=== PATIENT | male | born 1950 | race Caucasian/White ===

== ENCOUNTER 2017-04-13 11:21 | Observation (INO) | payer OTHER ==
[~2017-04-13] VITALS: Ht 175.3 cm; Wt 110.0 kg
[2017-04-13] VITALS (9 sets, daily range): BP systolic 145–192; BP diastolic 68–98; PULSE 73–89; RESP 14–22; TEMP 96.6–98.3; O2SAT 93–95
--- NOTE | 2017-04-13 11:31 | PD ---
Physical Exam Date Seen by Provider: April 13, 2017 Time Seen by Provider: 11:29 Narrative 66 yo male here for evaluation of "same symptoms as when I had a heart attack". Abdominal pain, constipation. Patient lives on a Van. Has no chest pain. But per patient this feels similar to last time. Vomiting. No nausea, no diarrhea. No blood. No SOB. Has been vomiting many times and symptoms are not improving. Vitals sign stable. Patient awaiting bed placement. Data Data Last Documented VS Vital Signs Date Time Temp Pulse Resp B/P Pulse Ox O2 Delivery O2 Flow Rate FiO2 04/13/17 11:25 98.3 89 18 178/86 94 MDM Medical Record Reviewed: Yes Supervised Visit with BERYL: No Avila Corbin April 13, 2017 11:31
--- NOTE | 2017-04-13 11:50 | PD ---
HPI Chief Complaint: GI Complaint Time Seen by Provider: 11:49 Travel History International Travel<30 days: No Contact w/Intl Traveler<30days: No Traveled to known affect area: No History of Present Illness HPI 66-year-old male presents to the emergency Department with nausea and abdominal discomfort. Patient states approximately 8:00 this morning had an episode of what he describes as heartburn nausea. Patient then threw up 1 at that time. Patient then felt improved and had his breakfast, and was driving here from [place] to get a haircut prior to a dental appointment later this afternoon. He states on his way here after breakfast he developed again a feeling of nausea with heartburn and vomited again 2 in the car prior to arriving here in the hospital. Patient states he has similar symptoms to this 3 years ago when he had a heart attack requiring catheterization and 2 stents placed. He states at that time he had no chest pain. At that time he had nausea and heartburn similar to today. He has no recent history of fever chills or other symptoms. Patient continues to be nauseous but denies chest pain at this time. She states she used to take medication for reflux but currently has not been taking it for some months. He has no known drug allergies. PFSH Past Medical History Cardiovascular Problems: Yes (MT) Diabetes: Yes (metformin) Social History Alcohol Use: Yes Tobacco Use: No Substance Use: No Allergies-Medications (Allergen,Severity, Reaction): Coded Allergies: No Known Allergies (Unverified , 04/13/17) Reported Meds & Prescriptions Reported Meds & Active Scripts Active Reported Proventil Hfa 6.7 GM Inh (Albuterol Sulfate) 90 Mcg/Act Aer 2 Puff INH Q6H PRN Symbicort Inh (Budesonide/Formoterol Fumarate) 160-4.5 Mcg/Act Aero 2 Puff INH BID Spiriva Handihaler (Tiotropium Inh) 18 Mcg Cap 18 Mcg INH DAILY 1 capsule = 18 mcg Tramadol-Acetaminophen 37.5-325 mg Tab 2 Tab PO Q4-6H PRN Amoxicillin 500 Mg Tab 500 Mg PO TID Ibuprofen 800 Mg Tab 800 Mg PO TID PRN Metformin (Metformin HCl) 1,000 Mg Tab 1,000 Mg PO BID With meals Pepto-Bismol Liq (Bismuth Subsalicylate) 262 Mg/15 Ml Susp 30 Ml PO Q1/2-1HR PRN Do not exceed 8 doses (240 mL or 16 tbsp) in 24 hours. Allopurinol 300 Mg Tab 300 Mg PO DAILY Atorvastatin (Atorvastatin Calcium) 80 Mg Tab 40 Mg PO HS Alfuzosin HCl ER (Alfuzosin HCl) 10 Mg Tab 10 Mg PO DAILY Ditropan (Oxybutynin Chloride) 5 Mg Tab 5 Mg PO DAILY Multi-Vitamin Daily (Multiple Vitamin) 1 Tab Tab 1 Tab PO DAILY Potassium 99 Mg Tablet 99 Mg PO DAILY Aspirin Adult Low Strength (Aspirin) 81 Mg Tabdr 81 Mg PO DAILY Magnesium Unknown Strength Tab 1 Tab PO DAILY Vitamin D3 (Cholecalciferol) 1,000 Unit Tab 2,500 Units PO DAILY Vitamin C (Ascorbic Acid) 1,000 Mg Tablet.er 1,000 Mg PO DAILY Review of Systems Except as stated in HPI: all other systems reviewed are Neg General / Constitutional: No: Fever Eyes: No: Visual changes HENT: No: Headaches Cardiovascular: No: Chest Pain or Discomfort Respiratory: No: Shortness of Breath Gastrointestinal: Positive: Nausea, Vomiting, Indigestion, Dysphagia, No: Diarrhea, Abdominal Pain Genitourinary: No: Dysuria Musculoskeletal: No: Pain Skin: No Rash Neurologic: No: Weakness Psychiatric: No: Depression Endocrine: No: Polydipsia Hematologic/Lymphatic: No: Easy Bruising Physical Exam Narrative GENERAL: Patient appears somewhat diaphoretic and mildly anxious but no acute distress. SKIN: Warm and mildly diaphoretic. Normal color. Normal turgor. HEAD: Atraumatic. Normocephalic. EYES: Pupils equal and round. No scleral icterus. No injection or drainage. ENT: No nasal bleeding or discharge. Mucous membranes pink and moist. Pharynx is clear. Airway is patent. NECK: Trachea midline. No JVD. Supple and nontender. CARDIOVASCULAR: Regular rate and rhythm. No murmurs gallops or rubs at this time. RESPIRATORY: No accessory muscle use. Clear to auscultation. Breath sounds equal bilaterally. GASTROINTESTINAL: Abdomen soft, non-tender, nondistended. Hepatic and splenic margins not palpable. No CVA tenderness. MUSCULOSKELETAL: Extremities without clubbing, cyanosis, or edema. No obvious deformities. NEUROLOGICAL: Awake and alert. No obvious cranial nerve deficits. Motor grossly within normal limits. Five out of 5 muscle strength in the arms and legs. Normal speech. PSYCHIATRIC: Appropriate mood and affect; insight and judgment normal. Data Data Last Documented VS Vital Signs Date Time Temp Pulse Resp B/P Pulse Ox O2 Delivery O2 Flow Rate FiO2 04/13/17 12:14 73 20 177/80 94 Nasal Cannula 2 149/68 04/13/17 11:25 98.3 Orders Electrocardiogram (04/13/17 11:55) B-Type Natriuretic Peptide (04/13/17 11:55) Ckmb (Isoenzyme) Profile (04/13/17 11:55) Complete Blood Count With Diff (04/13/17 11:55) Comprehensive Metabolic Panel (04/13/17 11:55) Magnesium (Mg) (04/13/17 11:55) Prothrombin Time / Inr (Pt) (04/13/17 11:55) Act Partial Throm Time (Ptt) (04/13/17 11:55) Troponin I (04/13/17 11:55) Lipase (04/13/17 11:55) Chest, Single Ap (04/13/17 11:55) Ecg Monitoring (04/13/17 11:55) Bilateral Bp Monitoring (04/13/17 11:55) Iv Access Insert/Monitor (04/13/17 11:55) Oximetry (04/13/17 11:55) Oxygen Administration (04/13/17 11:55) Aspirin Chew (Aspirin Chew) (04/13/17 12:00) Sodium Chloride 0.9% Flush (Ns Flush) (04/13/17 12:00) Sodium Chlorid 0.9% 500 Ml Inj (Ns 500 M (04/13/17 12:00) Ondansetron Inj (Zofran Inj) (04/13/17 12:00) Pantoprazole Inj (Protonix Inj) (04/13/17 12:00) Al-Mag Hy-Si 40-40-4 Mg/Ml Liq (Mag-Al P (04/13/17 12:00) Lidocaine 2% Viscous (Xylocaine 2% Visco (04/13/17 12:00) CKMB (04/13/17 12:05) CKMB% (04/13/17 12:05) Labs Laboratory Tests Test 04/13/17 12:05 White Blood Count 11.3 TH/MM3 Red Blood Count 4.25 MIL/MM3 Hemoglobin 13.3 GM/DL Hematocrit 40.6 % Mean Corpuscular Volume 95.6 FL Mean Corpuscular Hemoglobin 31.3 PG Mean Corpuscular Hemoglobin 32.7 % Concent Red Cell Distribution Width 13.8 % Platelet Count 156 TH/MM3 Mean Platelet Volume 8.4 FL Neutrophils (%) (Auto) 60.3 % Lymphocytes (%) (Auto) 23.9 % Monocytes (%) (Auto) 11.3 % Eosinophils (%) (Auto) 3.8 % Basophils (%) (Auto) 0.7 % Neutrophils # (Auto) 6.8 TH/MM3 Lymphocytes # (Auto) 2.7 TH/MM3 Monocytes # (Auto) 1.3 TH/MM3 Eosinophils # (Auto) 0.4 TH/MM3 Basophils # (Auto) 0.1 TH/MM3 CBC Comment DIFF FINAL Differential Comment Prothrombin Time 10.0 SEC Prothromb Time International 0.9 RATIO Ratio Activated Partial 26.7 SEC Thromboplast Time Sodium Level 140 MEQ/L Potassium Level 4.1 MEQ/L Chloride Level 103 MEQ/L Carbon Dioxide Level 27.3 MEQ/L Anion Gap 10 MEQ/L Blood Urea Nitrogen 7 MG/DL Creatinine 0.73 MG/DL Estimat Glomerular Filtration 107 ML/MIN Rate Random Glucose 75 MG/DL Calcium Level 9.2 MG/DL Magnesium Level 2.0 MG/DL Total Bilirubin 0.3 MG/DL Aspartate Amino Transf 44 U/L (AST/SGOT) Alanine Aminotransferase 47 U/L (ALT/SGPT) Alkaline Phosphatase 58 U/L Total Creatine Kinase 360 U/L Creatine Kinase MB 7.3 NG/ML Creatine Kinase MB % 2.0 % Troponin I LESS THAN 0.02 NG/ML B-Type Natriuretic Peptide 90 PG/ML Total Protein 6.7 GM/DL Albumin 3.7 GM/DL Lipase 67 U/L [facility] Medical Decision Making Medical Screen Exam Complete: Yes Emergency Medical Condition: Yes Medical Record Reviewed: Yes Differential Diagnosis Nausea and vomiting. Reflux. Cardiac syndrome. MT. Narrative Course Patient is medically stable at time of exam. Labs ordered including CBC, CMP, proBNP, heart attack panel, laceration sites, lipase, and urinalysis. EKG and chest x-ray ordered. IV access is obtained patient is given 500 mL of normal saline bolus. Patient is given 4 mg Zofran IV as well as 40 mg pantoprazole IV. Patient is given 324 mg chewable aspirin as well as GI cocktail by mouth. EKG shows normal sinus rhythm without ST changes. This was reviewed with Dr. Machado. CBC is unremarkable. Coagulation studies are normal. Chemistry shows troponin of less than 0.02. Creatinine kinase is elevated at 360. CK-MB is 7.3, and AST is slightly elevated at 44 otherwise no significant findings. Patient is discussed with Dr. Machado, and she feels admission to the chest pain center is warranted based on the patient's history. Diagnosis Primary Impression: Atypical chest pain Additional Impression: Nausea and vomiting Qualified Code: R11.2 - Non-intractable vomiting with nausea, unspecified vomiting type Admitting Information Admitting Physician Requests: Observation Condition: Stable Jerson Dee April 13, 2017 11:50
[2017-04-13] MEDS ORDERED: PANTOPRAZOLE SODIUM 40 MG VIAL IVP ONE (12:00)
[2017-04-13] MEDS ORDERED: SODIUM CHLORID 0.9% 500 ML INJ 500 ML IV ONE (12:00)
[2017-04-13] MEDS ORDERED: LIDOCAINE VISCOUS 2% SOLN 15 ML UDC PO ONE (12:00)
[2017-04-13] MEDS ORDERED: ASPIRIN 81 MG CHEW TAB PO ONE (12:00)
[2017-04-13] MEDS ORDERED: ALUMINUM/MAGNESIUM/SIMETH 30 ML CUP PO ONE (12:00)
[2017-04-13] MEDS ORDERED: ONDANSETRON HCL 4 MG/2 ML VIAL IVP ONE (12:00)
[2017-04-13] MEDS ORDERED: SODIUM CHLORIDE 0.9% FLUSH 10 ML FLUSH IVF PRN (12:00)
--- NOTE | 2017-04-13 12:36 | RADRPT ---
EXAM DATE/TIME: 04/13/2017 12:06 [facility] COMPARISON: No previous studies available for comparison. INDICATIONS : Chest pain and nausea this morning. MEDICAL HISTORY : Chronic obstructive pulmonary disease. Myocardial infarction. SURGICAL HISTORY : Coronary artery stent. ENCOUNTER: Initial ACUITY: 1 day PAIN SCORE: 4/10 LOCATION: Bilateral chest FINDINGS: The heart size is enlarged. The lungs are clear. No effusion is seen. Vascular calcifications are see n in the aorta and carotid arteries. CONCLUSION: Cardiomegaly. Griffin Escalante MD on April 13, 2017 at 12:35 Board Certified Radiologist. This report was verified electronically.
[2017-04-13 12:51] LABS: AUTOMATED NEUTROPHIL # 6.8 TH/MM3 (1.8-7.7); BASOPHIL # 0.1 TH/MM3 (0-0.2); BASOPHIL % 0.7 % (0.0-2.0); EOSINOPHIL # 0.4 TH/MM3 (0-0.4); EOSINOPHIL % 3.8 % (0.0-4.0); HEMATOCRIT 40.6 % (39.0-51.0); LYMPH % 23.9 % (9.0-44.0); LYMPHOCYTE # 2.7 TH/MM3 (1.0-4.8); MEAN CELL VOLUME 95.6 FL (80.0-100.0); MEAN CORPUSCULAR HEMOGLOBIN 31.3 PG (27.0-34.0); MEAN CORPUSCULAR HGB CONC 32.7 % (32.0-36.0); MONO % 11.3 % (0.0-8.0); NEUT % 60.3 % (16.0-70.0); PLATELET COUNT 156 TH/MM3 (150-450); RED BLOOD COUNT 4.25 MIL/MM3 (4.50-5.90); RED CELL DISTRIBUTION WIDTH 13.8 % (11.6-17.2); WHITE BLOOD COUNT 11.3 TH/MM3 (4.0-11.0)
[2017-04-13] MEDS ORDERED: VITA100018 PO (12:52)
[2017-04-13] MEDS ORDERED: METF1000 PO (12:52)
[2017-04-13] MEDS ORDERED: ALLO300T2 PO (12:52)
[2017-04-13] MEDS ORDERED: ASCO100016 PO (12:52)
[2017-04-13] MEDS ORDERED: SYMB160A INH (12:52)
[2017-04-13] MEDS ORDERED: ALBU6.7H INH (12:52)
[2017-04-13] MEDS ORDERED: IBUP800T23 PO (12:52)
[2017-04-13] MEDS ORDERED: ATOR1TAB18 PO (12:52)
[2017-04-13] MEDS ORDERED: MULT-65 PO (12:52)
[2017-04-13] MEDS ORDERED: OXYB5TAB10 PO (12:52)
[2017-04-13] MEDS ORDERED: TRAM-388 PO (12:52)
[2017-04-13] MEDS ORDERED: AMOX500T PO (12:52)
[2017-04-13] MEDS ORDERED: SPIRCAP INH (12:52)
[2017-04-13] MEDS ORDERED: ALFU10TA3 PO (12:52)
[2017-04-13] MEDS ORDERED: PEPT262S PO (12:52)
[2017-04-13] MEDS ORDERED: ASPI1TAB91 PO (12:52)
[2017-04-13] MEDS ORDERED: POTA99TA4 PO (12:52)
[2017-04-13] MEDS ORDERED: MAGN200T PO (12:52)
[2017-04-13 12:55] LABS: HEMO FLAGS DIFF FINAL
[2017-04-13 13:05] LABS: APTT (PATIENT) 26.7 SEC (24.3-30.1); INTERNATIONAL NORMALIZED RATIO 0.9 RATIO
[2017-04-13 13:28] LABS: ANION GAP 10 MEQ/L (5-15); AST (GOT) 44 U/L (15-37); BICARBONATE 27.3 MEQ/L (21.0-32.0); BLOOD UREA NITROGEN 7 MG/DL (7-18); CHLORIDE 103 MEQ/L (98-107); GLOMERULAR FILTRATION RATE 107 ML/MIN (>89); POTASSIUM 4.1 MEQ/L (3.5-5.1); SODIUM (NA) 140 MEQ/L (136-145)
[2017-04-13 13:33] LABS: ALKALINE PHOSPHATASE 58 U/L (45-117); ALT (GPT) 47 U/L (12-78); CREATINE KINASE 360 U/L (39-308); TOTAL BILIRUBIN ADULT 0.3 MG/DL (0.2-1.0)
[2017-04-13 13:45] LABS: CKMB 7.3 NG/ML (0.5-3.6)
[2017-04-13] MEDS ORDERED: ONDANSETRON HCL 4 MG/2 ML VIAL IV PRN (14:30)
[2017-04-13] MEDS ORDERED: NITROGLYCERIN 0.4 MG SL 25 TABS/BTL SL PRN (14:30)
[2017-04-13] MEDS ORDERED: ACETAMINOPHEN 500 MG CPLT PO PRN (14:30)
--- NOTE | 2017-04-13 14:57 | PD ---
Physical Exam Narrative GENERAL: Well-nourished, well-developed patient. SKIN: Warm and dry. HEAD: Normocephalic and atraumatic. EYES: No injection or drainage. ENT: No nasal drainage noted. NECK: Supple, trachea midline. CARDIOVASCULAR: Regular rate and rhythm RESPIRATORY: Breath sounds equal bilaterally. No accessory muscle use. GASTROINTESTINAL: Abdomen soft, non-tender, nondistended. NEUROLOGICAL: Awake and alert. moves all extremities. Normal speech. Data Data Last Documented VS Vital Signs Date Time Temp Pulse Resp B/P Pulse Ox O2 Delivery O2 Flow Rate FiO2 04/13/17 12:14 73 20 177/80 94 Nasal Cannula 2 149/68 04/13/17 11:25 98.3 Orders Electrocardiogram (04/13/17 11:55) B-Type Natriuretic Peptide (04/13/17 11:55) Ckmb (Isoenzyme) Profile (04/13/17 11:55) Complete Blood Count With Diff (04/13/17 11:55) Comprehensive Metabolic Panel (04/13/17 11:55) Magnesium (Mg) (04/13/17 11:55) Prothrombin Time / Inr (Pt) (04/13/17 11:55) Act Partial Throm Time (Ptt) (04/13/17 11:55) Troponin I (04/13/17 11:55) Lipase (04/13/17 11:55) Chest, Single Ap (04/13/17 11:55) Ecg Monitoring (04/13/17 11:55) Bilateral Bp Monitoring (04/13/17 11:55) Iv Access Insert/Monitor (04/13/17 11:55) Oximetry (04/13/17 11:55) Oxygen Administration (04/13/17 11:55) Aspirin Chew (Aspirin Chew) (04/13/17 12:00) Sodium Chloride 0.9% Flush (Ns Flush) (04/13/17 12:00) Sodium Chlorid 0.9% 500 Ml Inj (Ns 500 M (04/13/17 12:00) Ondansetron Inj (Zofran Inj) (04/13/17 12:00) Pantoprazole Inj (Protonix Inj) (04/13/17 12:00) Al-Mag Hy-Si 40-40-4 Mg/Ml Liq (Mag-Al P (04/13/17 12:00) Lidocaine 2% Viscous (Xylocaine 2% Visco (04/13/17 12:00) CKMB (04/13/17 12:05) CKMB% (04/13/17 12:05) Admit Order (Ed Use Only) (04/13/17 13:51) Labs Laboratory Tests Test 04/13/17 12:05 White Blood Count 11.3 TH/MM3 Red Blood Count 4.25 MIL/MM3 Hemoglobin 13.3 GM/DL Hematocrit 40.6 % Mean Corpuscular Volume 95.6 FL Mean Corpuscular Hemoglobin 31.3 PG Mean Corpuscular Hemoglobin 32.7 % Concent Red Cell Distribution Width 13.8 % Platelet Count 156 TH/MM3 Mean Platelet Volume 8.4 FL Neutrophils (%) (Auto) 60.3 % Lymphocytes (%) (Auto) 23.9 % Monocytes (%) (Auto) 11.3 % Eosinophils (%) (Auto) 3.8 % Basophils (%) (Auto) 0.7 % Neutrophils # (Auto) 6.8 TH/MM3 Lymphocytes # (Auto) 2.7 TH/MM3 Monocytes # (Auto) 1.3 TH/MM3 Eosinophils # (Auto) 0.4 TH/MM3 Basophils # (Auto) 0.1 TH/MM3 CBC Comment DIFF FINAL Differential Comment Prothrombin Time 10.0 SEC Prothromb Time International 0.9 RATIO Ratio Activated Partial 26.7 SEC Thromboplast Time Sodium Level 140 MEQ/L Potassium Level 4.1 MEQ/L Chloride Level 103 MEQ/L Carbon Dioxide Level 27.3 MEQ/L Anion Gap 10 MEQ/L Blood Urea Nitrogen 7 MG/DL Creatinine 0.73 MG/DL Estimat Glomerular Filtration 107 ML/MIN Rate Random Glucose 75 MG/DL Calcium Level 9.2 MG/DL Magnesium Level 2.0 MG/DL Total Bilirubin 0.3 MG/DL Aspartate Amino Transf 44 U/L (AST/SGOT) Alanine Aminotransferase 47 U/L (ALT/SGPT) Alkaline Phosphatase 58 U/L Total Creatine Kinase 360 U/L Creatine Kinase MB 7.3 NG/ML Creatine Kinase MB % 2.0 % Troponin I LESS THAN 0.02 NG/ML B-Type Natriuretic Peptide 90 PG/ML Total Protein 6.7 GM/DL Albumin 3.7 GM/DL Lipase 67 U/L [facility] Supervised Visit with BERYL: Yes Interpretation(s) EKG shows NSR, no ST elevation or depression, and no arrhythmias. No significant T-wave inversions. CBC & BMP Diagram 04/13/17 12:05 Last 24 hours Impressions Chest X-Ray 04/13/17 1155 Signed Impressions: Service Date/Time: Thursday, April 13, 2017 12:06 - CONCLUSION: Cardiomegaly. Griffin Escalante MD Narrative Course I, Dr. crandall, have reviewed the advance practice practitioner's documentation and am in agreement, met with the patient face to face, made the diagnosis, and the medical decision making was done by me. *My assessment and Findings: 66 y/o male presents with chest pain and nausea similar ro prior [place], initial testing no acute. Agrees to chest pain center observation. doesn't follow with a bridge design engineer, no workup in 2 years Diagnosis Primary Impression: Chest pain Qualified Code: R07.9 - Chest pain, unspecified type Additional Impression: Nausea Condition: Stable Giana Crandall MD April 13, 2017 14:57
--- NOTE | 2017-04-13 16:40 | HHI.HP ---
HPI Primary Care Physician [facility] Chief Complaint Nausea History of Present Illness 66-year-old male with past medical history of coronary artery disease and COPD presents to emergency room for further evaluation of nausea and abdominal discomfort. States this morning he developed acid reflux and vomited. At that time he took Pepto-Bismol with some relief. He continued to drive to his dental appointment although started feeling nausea this time with feeling of heartburn. Endorses he vomited a few more times. Patient is concerned as these symptoms were similar to when he had a heart attack 3 years ago. Myocardial infarction occurred while living in [facility]. At that time 2 stents were placed. He continues to have mild nausea although believes it is because he has eaten. He is currently on antibiotics and pain medication for extensive dental work. Review of Systems General: No fatigue,weakness, fever, chills, recent illness although endorses he is currently taking antibiotics prescribed to him by his dentist. He has had altered full teeth pulled and is also taking pain medication. HEENT: No TORRES, no nasal congestion or drainage, no dysphasia CV: No CP, pressure, palpitations, intermittent leg pain, dizziness RESP: No SOB, cough, wheeze or recent URI. Endorses severe COPD stating "my oxygen levels normally 89-92%. States he qualifies for O2 for home. States he is homeless and living out of his van therefore the [place] will not provide him with O2 tanks. GI: Nausea is improving described as "slight nausea." States taking his pain medication and eating most likely will help with his nausea. No bowel changes, diarrhea, pain, distention. EXT: No lower leg edema, no paraesthesias MS: No discomfort or change in ROM NEURO: No change in memory, dizziness, difficulty with balance, LOC, motor/ sensory deficits PSYCH: No anxiety, depression SKIN: No rashes, no concerning lesions Past Family Social History Allergies: Coded Allergies: No Known Allergies (Unverified , 04/13/17) Past Medical History Coronary artery disease including 2 cardiac stents, COPD, gout Reported Medications Active Reported Proventil Hfa 6.7 GM Inh (Albuterol Sulfate) 90 Mcg/Act Aer 2 Puff INH Q6H PRN Symbicort Inh (Budesonide/Formoterol Fumarate) 160-4.5 Mcg/Act Aero 2 Puff INH BID Spiriva Handihaler (Tiotropium Inh) 18 Mcg Cap 18 Mcg INH DAILY 1 capsule = 18 mcg Tramadol-Acetaminophen 37.5-325 mg Tab 2 Tab PO Q4-6H PRN Amoxicillin 500 Mg Tab 500 Mg PO TID Ibuprofen 800 Mg Tab 800 Mg PO TID PRN Metformin (Metformin HCl) 1,000 Mg Tab 1,000 Mg PO BID With meals Pepto-Bismol Liq (Bismuth Subsalicylate) 262 Mg/15 Ml Susp 30 Ml PO Q1/2-1HR PRN Do not exceed 8 doses (240 mL or 16 tbsp) in 24 hours. Allopurinol 300 Mg Tab 300 Mg PO DAILY Atorvastatin (Atorvastatin Calcium) 80 Mg Tab 40 Mg PO HS Alfuzosin HCl ER (Alfuzosin HCl) 10 Mg Tab 10 Mg PO DAILY Ditropan (Oxybutynin Chloride) 5 Mg Tab 5 Mg PO DAILY Multi-Vitamin Daily (Multiple Vitamin) 1 Tab Tab 1 Tab PO DAILY Potassium 99 Mg Tablet 99 Mg PO DAILY Aspirin Adult Low Strength (Aspirin) 81 Mg Tabdr 81 Mg PO DAILY Magnesium Unknown Strength Tab 1 Tab PO DAILY Vitamin D3 (Cholecalciferol) 1,000 Unit Tab 2,500 Units PO DAILY Vitamin C (Ascorbic Acid) 1,000 Mg Tablet.er 1,000 Mg PO DAILY Active Ordered Medications Current Medications Medications (Trade) Dose Ordered Sig/Dottie Route Start Time Stop Time Status Last Admin (NS Flush) 2 ml UNSCH PRN IVF 04/13/17 12:00 (NS Flush) 2 ml BID IV FLUSH 04/13/17 21:00 (Tylenol) 500 mg Q4H PRN PO 04/13/17 14:30 (Zofran Inj) 4 mg Q6H PRN IV 04/13/17 14:30 (Nitrostat Sl) 0.4 mg Q5M PRN SL 04/13/17 14:30 (Aspirin) 325 mg DAILY PO 04/14/17 09:00 Social History No known diabetes or hypertension. Endorses hyperlipidemia. Currently is homeless living out of his van. [facility] Past cardiac testing 2013 while living in [facility] he experienced a myocardial infarction. States cardiac catheterization was completed had 2 cardiac stents placed. 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 Physical Exam Vital Signs Vital Signs Date Time Temp Pulse Resp B/P Pulse Ox O2 Delivery O2 Flow Rate FiO2 04/13/17 16:27 98.2 78 14 192/98 94 04/13/17 15:30 73 22 152/86 94 Nasal Cannula 2 04/13/17 14:58 95 Nasal Cannula 2.00 04/13/17 12:14 73 20 177/80 94 Nasal Cannula 2 149/68 04/13/17 12:01 20 04/13/17 12:00 20 93 Nasal Cannula 2 04/13/17 12:00 3 Nasal Cannula 2 04/13/17 11:25 98.3 89 18 178/86 94 Physical Exam GENERAL: Alert WN, WD, NAD, male HEAD: NC, AT ENT: Mucous membranes pink and moist, dental plate in place NECK: Supple, no masses, trachea midline CV: RRR, without murmur, rub, gallop, no JVD, S1-S2 no S3-S4. RESP: Diminished lung sounds throughout with prolonged expiratory phase. no crackles, wheeze, rhonchi, symmetrical chest rise, mildly labored conversation although able to speak in full sentences ABD: Soft, NT, ND, no masses, positive bowel tones, obese, round EXT: Pulses +24, no dependent edema MS: Normal tone 4 extremities, nontender, no obvious deformities, full range of motion NEURO: CN II through CN XII grossly intact, motor strength 5/5, gait WNL PSYCH: A+O 3, pleasant affect, appropriate speech, appropriate mood and affect , insight and judgment SKIN: Normal turgor, normal texture Laboratory Laboratory Tests Test 04/13/17 12:05 White Blood Count 11.3 Red Blood Count 4.25 Hemoglobin 13.3 Hematocrit 40.6 Mean Corpuscular Volume 95.6 Mean Corpuscular Hemoglobin 31.3 Mean Corpuscular Hemoglobin 32.7 Concent Red Cell Distribution Width 13.8 Platelet Count 156 Mean Platelet Volume 8.4 Neutrophils (%) (Auto) 60.3 Lymphocytes (%) (Auto) 23.9 Monocytes (%) (Auto) 11.3 Eosinophils (%) (Auto) 3.8 Basophils (%) (Auto) 0.7 Neutrophils # (Auto) 6.8 Lymphocytes # (Auto) 2.7 Monocytes # (Auto) 1.3 Eosinophils # (Auto) 0.4 Basophils # (Auto) 0.1 CBC Comment DIFF FINAL Differential Comment Prothrombin Time 10.0 Prothromb Time International 0.9 Ratio Activated Partial 26.7 Thromboplast Time Sodium Level 140 Potassium Level 4.1 Chloride Level 103 Carbon Dioxide Level 27.3 Anion Gap 10 Blood Urea Nitrogen 7 Creatinine 0.73 Estimat Glomerular Filtration 107 Rate Random Glucose 75 Calcium Level 9.2 Magnesium Level 2.0 Total Bilirubin 0.3 Aspartate Amino Transf 44 (AST/SGOT) Alanine Aminotransferase 47 (ALT/SGPT) Alkaline Phosphatase 58 Total Creatine Kinase 360 Creatine Kinase MB 7.3 Creatine Kinase MB % 2.0 Troponin I LESS THAN 0.02 B-Type Natriuretic Peptide 90 Total Protein 6.7 Albumin 3.7 Lipase 67 Result Diagram: 04/13/17 1205 04/13/17 1205 Imaging Last Impressions Chest X-Ray 04/13/17 1155 Signed Impressions: Service Date/Time: Thursday, April 13, 2017 12:06 - CONCLUSION: Cardiomegaly. Griffin Escalante MD Course EKG First EKG showed normal sinus rhythm, no ST or T-segment changes Assessment and Plan Assessment and Plan Chest painseen and evaluated by Dr. Ebony Serna. Admitted to chest pain center. Will rule out with 3 sets of EKGs and cardiac enzymes. If ruled out will complete chemical stress test in a.m. COPDcontinue Symbicort and albuterol when necessary History of coronary artery diseasecontinue aspirin and atorvastatin, discussed in length importance of keeping follow-up appointments with cardiology Diabetes- hold metformin, SSI coverage NauseaZofran when necessary, continue to monitor Ligia Segura April 13, 2017 16:40
[2017-04-13] MEDS ORDERED: amLODIPine BESYLATE 5 MG TAB PO ONE (16:45)
[2017-04-13 16:46] LABS: CREATINE KINASE 283 U/L (39-308)
[2017-04-13 16:58] LABS: CKMB 6.5 NG/ML (0.5-3.6)
[2017-04-13] MEDS ORDERED: RESP: ALBUTEROL 2.5 MG/3 ML NEB (PRN) NEB (17:00)
[2017-04-13] MEDS ORDERED: GLUCAGON 1 MG/ML VIAL OTHER PRN (17:15)
[2017-04-13] MEDS ORDERED: DEXTROSE 50% IN WATER 50 ML VIAL(D50) IV PRN (17:15)
[2017-04-13] MEDS: AMOXICILLIN (TRIHYDRATE) 500 MG CAP PO SCH (19:01)
[2017-04-13 19:02] LABS: CREATINE KINASE 307 U/L (39-308)
[2017-04-13] MEDS ORDERED: ATORVASTATIN 40 MG TAB PO SCH (21:00)
[2017-04-13] MEDS: SODIUM CHLORIDE 0.9% FLUSH 10 ML FLUSH IV FLUSH SCH (21:00)
[2017-04-13] MEDS: INSULIN ASPART SUPPLEMENTAL SCALE SQ SCH (21:00)
[2017-04-13] MEDS: BUDESONIDE-FORMOTEROL 160/4.5 MCG INHALER INH SCH (21:00)
[2017-04-13] MEDS ORDERED: traMADol/ACETAMINOPHEN 37.5/325 1 TAB PO PRN (23:30)
[2017-04-14] VITALS (7 sets, daily range): BP systolic 115–149; BP diastolic 64–72; PULSE 81–90; RESP 18–20; TEMP 94.6–98.9; O2SAT 86–97
[2017-04-14] MEDS: INSULIN ASPART SUPPLEMENTAL SCALE SQ SCH ×2 (05:48→11:57)
[2017-04-14] MEDS: BUDESONIDE-FORMOTEROL 160/4.5 MCG INHALER INH SCH (08:15)
[2017-04-14] MEDS: AMOXICILLIN (TRIHYDRATE) 500 MG CAP PO SCH ×2 (08:16→12:05)
[2017-04-14] MEDS: SODIUM CHLORIDE 0.9% FLUSH 10 ML FLUSH IV FLUSH SCH (08:16)
[2017-04-14] MEDS ORDERED: OXYBUTYNIN CHLORIDE 5 MG TAB PO SCH (09:00)
[2017-04-14] MEDS ORDERED: ASPIRIN 325 MG TAB PO SCH (09:00)
[2017-04-14] MEDS ORDERED: ALLOPURINOL 300 MG TAB PO SCH (09:00)
[2017-04-14] MEDS ORDERED: ALFUZOSIN HCL 10 MG PO SCH (09:00)
[2017-04-14] MEDS ORDERED: NON-FORMULARY DRUG (Multiple Vitamin (Multi-Vitamin Daily) 1 TAB) PO SCH (09:00)
[2017-04-14] MEDS ORDERED: TIOTROPIUM BROMIDE 18 MCG INH INH SCH (09:00)
[2017-04-14] MEDS ORDERED: TAMSULOSIN HCL 0.4 MG CAP PO SCH (09:00)
[2017-04-14] MEDS ORDERED: MULTIVITAMIN TAB PO SCH (09:00)
[2017-04-14] MEDS ORDERED: REGADENOSON INJ 0.4 MG/5 ML SYR ONE (10:13)
--- NOTE | 2017-04-14 12:03 | RADRPT ---
EXAM DATE/TIME: 04/14/2017 09:23 [facility] COMPARISON: No previous studies available for comparison. INDICATIONS : Nausea and vomiting with abdominal pain. Angina. DOSE: 35.0 mCi Tc99m Myoview at stress. 11.0 mCi Tc99m Myoview at rest. 0.4 mg Lexiscan STRESS SYMPTOMS: Chest pain and dyspnea. EJECTION FRACTION: > 70% MEDICAL HISTORY : Chronic obstructive pulmonary disease. Diabetes mellitus type 2. Myocardial infarction. SURGICAL HISTORY : CABG Coronary artery stent. ENCOUNTER: Initial ACUITY: 1 day PAIN SCALE: 6/10 LOCATION: Abdominal pain. TECHNIQUE: The patient underwent pharmacologic stress with infusion of prescribed dose. Continuous ECG tracing was monitored during stress. Gated SPECT imaging was performed after stress and conventional SPECT i maging was performed at rest. The examination was performed on a SPECT/CT scanner, both attenuation and non-corrected datasets were reviewed. FINDINGS: DISTRIBUTION: The maximum perfused segment at stress is in the anterior lateral wall. PERFUSION STUDY: The pattern of perfusion at stress is within normal limits. GATED STUDY: There is intact wall motion and thickening without hypokinetic or dyskinetic segments. CONCLUSION: Negative for stress-induced ischemia. RISK CATEGORY: Low (<1% Annual Mortality Rate) Jhonny Medeiros MD FACR on April 14, 2017 at 12:01 Board Certified Radiologist. This report was verified electronically.
--- NOTE | 2017-04-14 12:53 | HHI.DCPOC ---
Discharge Care Plan Diagnosis: (1) Chest pain (2) CAD (coronary artery disease) (3) H/O heart artery stent (4) Hypertension (5) Hyperlipidemia (6) DM (diabetes mellitus) (7) COPD (chronic obstructive pulmonary disease) Goals to Promote Your Health DISCUSS THE NEED TO TAKE LISINOPRIL TO PROTECT YOUR KIDNEYS WITH YOUR HISTORY OF DIABETES. * To prevent worsening of your condition and complications * To maintain your health at the optimal level Directions to Meet Your Goals Take your medications as prescribed Follow your dietary instruction Follow activity as directed Keep your appointments as scheduled Take your immunizations and boosters as scheduled If your symptoms worsen call your PCP, if no PCP go to Urgent Care Center or Emergency Room Smoking is Dangerous to Your Health. Avoid second hand smoke Call the 24-hour hour crisis hotline for domestic abuse at [facility] [place] April 14, 2017 12:53
--- NOTE | 2017-04-14 13:47 | EKG ---
Date Performed: 04/14/2017 Time Performed: 01:51:25 PTAGE: 66 years EKG: Sinus rhythm NORMAL ECG PREVIOUS TRACING : 04/13/2017 16.04 Since previous tracing, no significant change noted DOCTOR: Guevara Parra Interpretating Date/Time 04/14/2017 13:46:46
--- NOTE | 2017-04-14 13:50 | EKG ---
Date Performed: 04/13/2017 Time Performed: 16:04:15 PTAGE: 66 years EKG: Sinus rhythm WITH SINUS ARRHYTHMIA NORMAL ECG PREVIOUS TRACING : 04/13/2017 12.17 Since previous tracing, no significant change noted DOCTOR: Guevara Parra Interpretating Date/Time 04/14/2017 13:49:05
--- NOTE | 2017-04-14 13:52 | TR ---
Date Performed: 04/14/2017 Time Performed: 10:22:07 DOCTOR: Guevara Parra DRUG LIST: CLINICAL HISTORY: REASON FOR TEST: REASON FOR ENDING: OBSERVATION: CONCLUSION: Lexiscan stress test was performed under standard four minute protocol. Radionuclid e was injected one minute prior to ending the test. No electrocardiographic abormalities were present to suggest ischemia. Nuclear imaging and interpretation are pending. COMMENTS:
--- NOTE | 2017-04-14 13:52 | EKG ---
Date Performed: 04/13/2017 Time Performed: 12:17:00 PTAGE: 66 years EKG: Sinus rhythm NORMAL ECG NO PREVIOUS TRACING DOCTOR: Guevara Parra Interpretating Date/Time 04/14/2017 13:51:08
== END 2017-04-14 13:45 | disposition home or self-care (01) ==
LOC: NEPC 11:21 → NEDA 13:53 → NEPFCDU 16:26
PROVIDERS: ADMIT Internal Medicine Interventional Cardiology; ATTEND Internal Medicine Interventional Cardiology
DX: R07.89 Other chest pain (principal); R11.0 Nausea; E11.9 Type 2 diabetes mellitus without complications; E78.5 Hyperlipidemia, unspecified; I25.10 Atherosclerotic heart disease of native coronary artery without angina pectoris; Z95.5 Presence of coronary angioplasty implant and graft; J44.9 Chronic obstructive pulmonary disease, unspecified; I25.2 Old myocardial infarction; K21.9 Gastro-esophageal reflux disease without esophagitis; M10.9 Gout, unspecified; Z95.1 Presence of aortocoronary bypass graft; Z59.0 Homelessness; Z79.84 Long term (current) use of oral hypoglycemic drugs; Z79.82 Long term (current) use of aspirin
CPT/HCPCS: 71010; 78452; 80053; 82550; 82552; 82948; 83690; 83735; 83880; 84484; 85025; 85610; 85730; 93005; 93017; 96374; 96375; 99285; A9502; C9113; G0378; J2405; J2785; J7040

== ENCOUNTER 2017-10-14 16:25 | Emergency (ER) | payer OTHER ==
[~2017-10-14] VITALS: Ht 175.3 cm; Wt 110.0 kg
[~2017-10-14 16:25] MED LIST: ALBU6.7H INH; ALFU10TA3 PO; ALLO300T2 PO; AMOX500T PO; ASCO100029 PO; ASPI81TA16 PO; ATOR80TA45 PO; IBUP1TAB7 PO; MAGN200T PO; METF1000 PO; MULT-65 PO; OXYB5TAB8 PO; PEPT262S PO; POTA99TA4 PO; SPIRCAP INH; SYMB160A INH; TRAM-388 PO; VITA100018 PO
[2017-10-14 16:28] VITALS: BP 139/56; PULSE 101; RESP 18; TEMP 99.4; O2SAT 95
[2017-10-14] MEDS ORDERED: SODIUM CHLORIDE 0.9% FLUSH 10 ML FLUSH IVF PRN (16:45)
[2017-10-14 16:49] VITALS: BP 121/64; PULSE 98; RESP 20; O2SAT 94
--- NOTE | 2017-10-14 16:53 | PD ---
HPI Chief Complaint: Cardiac Complaint Time Seen by Provider: 16:40 Travel History International Travel<30 days: No Contact w/Intl Traveler<30days: No Traveled to known affect area: No History of Present Illness HPI 66-year-old male with history of coronary artery disease, COPD, hyperlipidemia, presents for evaluation of dyspnea. For the past 3 weeks he has had progressively worsening dyspnea with exertion. He also endorses a cough with clear sputum production. He was seen at the [place] and referred here for further evaluation. He has been using his prescribed COPD medications with minimal relief. He denies chest pain, fevers or chills, lower extremity edema, recent travel, recent surgery. No history of CHF. No other complaints at this time. PFSH Past Medical History Asthma: No Blood Disorders: No Heart Rhythm Problems: No Cancer: No Cardiovascular Problems: Yes High Cholesterol: No Chemotherapy: No Chest Pain: Yes Congestive Heart Failure: No COPD: Yes Diabetes: Yes Patient Takes Glucophage: Yes Diminished Hearing: No Endocrine: Yes Gastrointestinal Disorders: Yes Genitourinary: Yes (NOCTURIA, ENLARGED PROSTATE.) Musculoskeletal: Yes (muscle cramps) Neurologic: No Psychiatric: No Reproductive: No Respiratory: Yes Radiation Therapy: No Sleep Apnea: Yes Thyroid Disease: No Tetanus Vaccination: < 5 Years Past Surgical History Coronary Artery Bypass Graft: Yes (stent x 2) Other Surgery: Yes (bilateral eye surgery, teeth removal , cardiac cath w/ 2 stents) Social History Alcohol Use: Yes Tobacco Use: No Substance Use: No Allergies-Medications (Allergen,Severity, Reaction): Coded Allergies: No Known Allergies (Unverified Adverse Reaction, Unknown, 10/14/17) Reported Meds & Prescriptions Reported Meds & Active Scripts Active Azithromycin 250 Mg Tab 250 Mg PO DIRECTED Take 2 tabs (500 mg) on day 1 then 1 tab daily x 4 days. Prednisone 20 Mg Tab 20 Mg PO BID 5 Days Reported Proventil Hfa 6.7 GM Inh (Albuterol Sulfate) 90 Mcg/Act Aer 2 Puff INH Q6H PRN Symbicort Inh (Budesonide/Formoterol Fumarate) 160-4.5 Mcg/Act Aero 2 Puff INH BID Spiriva Handihaler (Tiotropium Inh) 18 Mcg Cap 18 Mcg INH DAILY 1 capsule = 18 mcg Tramadol-Acetaminophen 37.5-325 mg Tab 2 Tab PO Q4-6H PRN Ibuprofen 800 Mg Tab 800 Mg PO TID PRN Metformin (Metformin HCl) 1,000 Mg Tab 1,000 Mg PO BID With meals Pepto-Bismol Liq (Bismuth Subsalicylate) 262 Mg/15 Ml Susp 30 Ml PO Q1/2-1HR PRN Do not exceed 8 doses (240 mL or 16 tbsp) in 24 hours. Allopurinol 300 Mg Tab 300 Mg PO DAILY Atorvastatin (Atorvastatin Calcium) 80 Mg Tab 40 Mg PO HS Alfuzosin HCl ER (Alfuzosin HCl) 10 Mg Tab 10 Mg PO DAILY Ditropan (Oxybutynin Chloride) 5 Mg Tab 5 Mg PO DAILY Multi-Vitamin Daily (Multiple Vitamin) 1 Tab Tab 1 Tab PO DAILY Potassium 99 Mg Tablet 99 Mg PO DAILY Aspirin Adult Low Strength (Aspirin) 81 Mg Tabdr 81 Mg PO DAILY Magnesium Unknown Strength Tab 1 Tab PO DAILY Vitamin D3 (Cholecalciferol) 1,000 Unit Tab 2,500 Units PO DAILY Vitamin C (Ascorbic Acid) 1,000 Mg Tablet.er 1,000 Mg PO DAILY Review of Systems Except as stated in HPI: all other systems reviewed are Neg Physical Exam Narrative GENERAL: Well-nourished male in no acute distress SKIN: Warm and dry. HEAD: Atraumatic. Normocephalic. EYES: Pupils equal and round. No scleral icterus. No injection or drainage. ENT: No nasal bleeding or discharge. Mucous membranes pink and moist. NECK: Trachea midline. No JVD. CARDIOVASCULAR: Regular rate and rhythm. No murmur appreciated. RESPIRATORY: No accessory muscle use. No crackles, wheezing, rhonchi GASTROINTESTINAL: Abdomen soft, non-tender, nondistended. Hepatic and splenic margins not palpable. MUSCULOSKELETAL: No obvious deformities. No clubbing. No cyanosis. No edema. NEUROLOGICAL: Awake and alert. No obvious cranial nerve deficits. Motor grossly within normal limits. Normal speech. PSYCHIATRIC: Appropriate mood and affect; insight and judgment normal. Data Data Last Documented VS Vital Signs Date Time Temp Pulse Resp B/P (MAP) Pulse Ox O2 Delivery O2 Flow Rate FiO2 10/14/17 19:20 92 17 93 Room Air 10/14/17 19:19 123/66 (85) 10/14/17 16:28 99.4 Orders Orders Complete Blood Count With Diff (10/14/17 16:45) Comprehensive Metabolic Panel (10/14/17 16:45) B-Type Natriuretic Peptide (10/14/17 16:45) Act Partial Throm Time (Ptt) (10/14/17 16:45) Prothrombin Time / Inr (Pt) (10/14/17 16:45) Magnesium (Mg) (10/14/17 16:45) Ckmb (Isoenzyme) Profile (10/14/17 16:45) Troponin I (10/14/17 16:45) Iv Access Insert/Monitor (10/14/17 16:45) Electrocardiogram (10/14/17 16:45) Ecg Monitoring (10/14/17 16:45) Oximetry (10/14/17 16:45) Oxygen Administration (10/14/17 16:45) Chest, Single Ap (10/14/17 16:45) Sodium Chloride 0.9% Flush (Ns Flush) (10/14/17 16:45) Albuterol-Ipratropium Neb (Duoneb Neb) (10/14/17 17:00) CKMB (10/14/17 16:50) CKMB% (10/14/17 16:50) Ct Pulmonary Angiogram (10/14/17 18:59) Iohexol 350 Inj (Omnipaque 350 Inj) (10/14/17 19:51) Methylprednisolone So Succ Inj (Solumedr (10/14/17 21:30) Ed Discharge Order (10/14/17 21:22) Labs Laboratory Tests Test 10/14/17 16:50 White Blood Count 11.2 TH/MM3 Red Blood Count 4.14 MIL/MM3 Hemoglobin 13.7 GM/DL Hematocrit 40.4 % Mean Corpuscular Volume 97.5 FL Mean Corpuscular Hemoglobin 33.1 PG Mean Corpuscular Hemoglobin Concent 33.9 % Red Cell Distribution Width 14.3 % Platelet Count 155 TH/MM3 Mean Platelet Volume 9.2 FL Neutrophils (%) (Auto) 55.6 % Lymphocytes (%) (Auto) 28.0 % Monocytes (%) (Auto) 11.5 % Eosinophils (%) (Auto) 4.0 % Basophils (%) (Auto) 0.9 % Neutrophils # (Auto) 6.2 TH/MM3 Lymphocytes # (Auto) 3.1 TH/MM3 Monocytes # (Auto) 1.3 TH/MM3 Eosinophils # (Auto) 0.5 TH/MM3 Basophils # (Auto) 0.1 TH/MM3 CBC Comment DIFF FINAL Differential Comment Prothrombin Time 10.4 SEC Prothromb Time International Ratio 1.0 RATIO Activated Partial Thromboplast Time 25.0 SEC Blood Urea Nitrogen 17 MG/DL Creatinine 1.01 MG/DL Random Glucose 114 MG/DL Total Protein 6.9 GM/DL Albumin 4.1 GM/DL Calcium Level 9.2 MG/DL Magnesium Level 1.8 MG/DL Alkaline Phosphatase 57 U/L Aspartate Amino Transf (AST/SGOT) 77 U/L Alanine Aminotransferase (ALT/SGPT) 77 U/L Total Bilirubin 0.5 MG/DL Sodium Level 137 MEQ/L Potassium Level 4.3 MEQ/L Chloride Level 103 MEQ/L Carbon Dioxide Level 25.6 MEQ/L Anion Gap 8 MEQ/L Estimat Glomerular Filtration Rate 73 ML/MIN Total Creatine Kinase 506 U/L Creatine Kinase MB 8.4 NG/ML Creatine Kinase MB % 1.7 % Troponin I LESS THAN 0.02 NG/ML B-Type Natriuretic Peptide 3 PG/ML MDM Medical Decision Making Medical Screen Exam Complete: Yes Emergency Medical Condition: Yes Medical Record Reviewed: Yes Differential Diagnosis New onset CHF, COPD exacerbation, pneumonia, pulmonary embolism, coronary artery disease, pneumothorax, pleural effusion, hemothorax, pericardial effusion Narrative Course The patient will be placed on ECG monitoring pulse oximetry. A 12-lead EKG will be obtained. Plan is for lab work, chest x-ray. Trial of DuoNeb therapy will be initiated. The patient's lab work is been reviewed and found to be reassuring. His CT pulmonary angiogram is negative. He feels improved after the administration of DuoNeb and suspicion is that the patient has a COPD exacerbation. He has been ambulatory during his ED stay with no hypoxic events. He will be discharged with a short course of prednisone and azithromycin. Diagnosis Primary Impression: COPD exacerbation Additional Instructions: Medication as prescribed. Follow up close with primary care physician and return for any acutely worsening symptoms. Med/Other Pt SpecificInfo: Prescription(s) given Scripts Azithromycin (Azithromycin) 250 Mg Tab 250 MG PO DIRECTED for Infection, #6 TAB 0 Refills Take 2 tabs (500 mg) on day 1 then 1 tab daily x 4 days. Prov: Celestine Rock MD 10/14/17 Prednisone (Prednisone) 20 Mg Tab 20 MG PO BID for 5 Days, #10 TAB 0 Refills Prov: Celestine Rock MD 10/14/17 Disposition: 01 DISCHARGE HOME Condition: Stable Ochoa Moore Oct 14, 2017 16:53
[2017-10-14] MEDS ORDERED: RESP: ALBUTEROL 2.5 MG/IPRATROPIUM 0.5 MG NEB (SCH) INH ONE (17:00)
--- NOTE | 2017-10-14 17:11 | RADRPT ---
EXAM DATE/TIME: 10/14/2017 17:04 [facility] COMPARISON: CHEST SINGLE AP, April 13, 2017, 12:06. INDICATIONS : Short of breath MEDICAL HISTORY : Chronic obstructive pulmonary disease. SURGICAL HISTORY : Coronary artery stent ENCOUNTER: Initial ACUITY: 1 day PAIN SCORE: 0/10 LOCATION: chest FINDINGS: 2 AP portable erect chest was obtained and demonstrate hyperinflation of both lungs with an apparent pericardiac fat-pad on the right which is unchanged. There are no new infiltrates or effusions. The h eart size is at the upper limits of normal with no perihilar edema. Atherosclerotic calcifications ar e present in the aorta. The bony thorax remains intact. CONCLUSION: Stable appearance with no acute cardiopulmonary disease. Gorge Wolf MD on October 14, 2017 at 17:08 Board Certified Radiologist. This report was verified electronically.
[2017-10-14 17:56] LABS: AUTOMATED NEUTROPHIL # 6.2 TH/MM3 (1.8-7.7); BASOPHIL # 0.1 TH/MM3 (0-0.2); BASOPHIL % 0.9 % (0.0-2.0); EOSINOPHIL # 0.5 TH/MM3 (0-0.4); HEMATOCRIT 40.4 % (39.0-51.0); HEMO FLAGS DIFF FINAL; LYMPHOCYTE # 3.1 TH/MM3 (1.0-4.8); MEAN CELL VOLUME 97.5 FL (80.0-100.0); MEAN CORPUSCULAR HEMOGLOBIN 33.1 PG (27.0-34.0); MEAN CORPUSCULAR HGB CONC 33.9 % (32.0-36.0); MONO % 11.5 % (0.0-8.0); NEUT % 55.6 % (16.0-70.0); PLATELET COUNT 155 TH/MM3 (150-450); RED BLOOD COUNT 4.14 MIL/MM3 (4.50-5.90); RED CELL DISTRIBUTION WIDTH 14.3 % (11.6-17.2); WHITE BLOOD COUNT 11.2 TH/MM3 (4.0-11.0)
[2017-10-14 18:09] LABS: PROTHROMBIN TIME - PATIENT 10.4 SEC (9.8-11.6)
[2017-10-14 18:15] LABS: ANION GAP 8 MEQ/L (5-15); AST (GOT) 77 U/L (15-37); BICARBONATE 25.6 MEQ/L (21.0-32.0); BLOOD UREA NITROGEN 17 MG/DL (7-18); CHLORIDE 103 MEQ/L (98-107); GLOMERULAR FILTRATION RATE 73 ML/MIN (>89); MAGNESIUM 1.8 MG/DL (1.5-2.5); POTASSIUM 4.3 MEQ/L (3.5-5.1); SODIUM (NA) 137 MEQ/L (136-145)
[2017-10-14 18:20] LABS: ALKALINE PHOSPHATASE 57 U/L (45-117); ALT (GPT) 77 U/L (12-78); CREATINE KINASE 506 U/L (39-308); TOTAL BILIRUBIN ADULT 0.5 MG/DL (0.2-1.0)
[2017-10-14 18:32] LABS: CKMB 8.4 NG/ML (0.5-3.6)
[2017-10-14 19:19] VITALS: BP 123/66; PULSE 92; RESP 17; O2SAT 91
[2017-10-14] MEDS ORDERED: IOHEXOL 350 MG/ML 10 ML VIAL (for RAD DIAG) IVCONTRAST ONE (19:51)
--- NOTE | 2017-10-14 21:21 | RADRPT ---
EXAM DATE/TIME: 10/14/2017 19:37 [facility] COMPARISON: No previous studies available for comparison. INDICATIONS : Short of breath. Congestion. IV CONTRAST: 75 cc Omnipaque 350 (iohexol) IV RADIATION DOSE: 17.81 CTDIvol (mGy) MEDICAL HISTORY : Cardiovascular disease. Chronic obstructive pulmonary disease. Congestive heart failure.Diabetes. SURGICAL HISTORY : None. ENCOUNTER: Initial ACUITY: 1 day PAIN SCALE: 0/10 LOCATION: chest TECHNIQUE: Volumetric scanning of the chest was performed using a pulmonary embolism protocol MIP images were re constructed. Using automated exposure control and adjustment of the mA and/or kV according to patien t size, radiation dose was kept as low as reasonably achievable to obtain optimal diagnostic quality images. DICOM format image data is available electronically for review and comparison. Follow-up recommendations for detected pulmonary nodules are based at a minimum on nodule size and pa tient risk factors according to Fleischner Society Guidelines. FINDINGS: PULMONARY ARTERIES: No filling defects are seen in the pulmonary arteries through the segmental level. LUNGS: There is scattered emphysematous change seen in the upper lungs. PLEURAE: There is no pleural thickening or pleural effusion. MEDIASTINUM: There is good visualization of the great vessels of the middle mediastinum. No evidence of mediastin al or hilar adenopathy/mass. Coronary artery calcifications are present. MUSCULOSKELETAL: Within normal limits for patient age. MISCELLANEOUS: The visualized upper abdominal organs demonstrate no acute abnormality. CONCLUSION: 1. No pulmonary embolus. 2. Emphysematous change. Griffin Escalante MD on October 14, 2017 at 21:17 Board Certified Radiologist. This report was verified electronically.
[2017-10-14] MEDS ORDERED: AZIT250T3 PO (21:24)
[2017-10-14] MEDS ORDERED: PRED20 PO (21:24)
[2017-10-14] MEDS ORDERED: methylPREDNISolone SOD SUCC 125 MG/2 ML VIAL IV PUSH ONE (21:30)
--- NOTE | 2017-10-14 21:32 | PD ---
Physical Exam Date Seen by Provider: Oct 14, 2017 Time Seen by Provider: 19:50 Narrative Sent from [place] for SOB to R/O CHF we reviewed his myocardial profusion scan > 70 % EF and CXR read as no congestion sat on RA 95 % ready for discharge Data Data Last Documented VS Vital Signs Date Time Temp Pulse Resp B/P (MAP) Pulse Ox O2 Delivery O2 Flow Rate FiO2 10/14/17 19:20 92 17 93 Room Air 10/14/17 19:19 123/66 (85) 10/14/17 16:28 99.4 Orders Orders Complete Blood Count With Diff (10/14/17 16:45) Comprehensive Metabolic Panel (10/14/17 16:45) B-Type Natriuretic Peptide (10/14/17 16:45) Act Partial Throm Time (Ptt) (10/14/17 16:45) Prothrombin Time / Inr (Pt) (10/14/17 16:45) Magnesium (Mg) (10/14/17 16:45) Ckmb (Isoenzyme) Profile (10/14/17 16:45) Troponin I (10/14/17 16:45) Iv Access Insert/Monitor (10/14/17 16:45) Electrocardiogram (10/14/17 16:45) Ecg Monitoring (10/14/17 16:45) Oximetry (10/14/17 16:45) Oxygen Administration (10/14/17 16:45) Chest, Single Ap (10/14/17 16:45) Sodium Chloride 0.9% Flush (Ns Flush) (10/14/17 16:45) Albuterol-Ipratropium Neb (Duoneb Neb) (10/14/17 17:00) CKMB (10/14/17 16:50) CKMB% (10/14/17 16:50) Ct Pulmonary Angiogram (10/14/17 18:59) Iohexol 350 Inj (Omnipaque 350 Inj) (10/14/17 19:51) Methylprednisolone So Succ Inj (Solumedr (10/14/17 21:30) Ed Discharge Order (10/14/17 21:22) Labs Laboratory Tests Test 10/14/17 16:50 White Blood Count 11.2 TH/MM3 Red Blood Count 4.14 MIL/MM3 Hemoglobin 13.7 GM/DL Hematocrit 40.4 % Mean Corpuscular Volume 97.5 FL Mean Corpuscular Hemoglobin 33.1 PG Mean Corpuscular Hemoglobin Concent 33.9 % Red Cell Distribution Width 14.3 % Platelet Count 155 TH/MM3 Mean Platelet Volume 9.2 FL Neutrophils (%) (Auto) 55.6 % Lymphocytes (%) (Auto) 28.0 % Monocytes (%) (Auto) 11.5 % Eosinophils (%) (Auto) 4.0 % Basophils (%) (Auto) 0.9 % Neutrophils # (Auto) 6.2 TH/MM3 Lymphocytes # (Auto) 3.1 TH/MM3 Monocytes # (Auto) 1.3 TH/MM3 Eosinophils # (Auto) 0.5 TH/MM3 Basophils # (Auto) 0.1 TH/MM3 CBC Comment DIFF FINAL Differential Comment Prothrombin Time 10.4 SEC Prothromb Time International Ratio 1.0 RATIO Activated Partial Thromboplast Time 25.0 SEC Blood Urea Nitrogen 17 MG/DL Creatinine 1.01 MG/DL Random Glucose 114 MG/DL Total Protein 6.9 GM/DL Albumin 4.1 GM/DL Calcium Level 9.2 MG/DL Magnesium Level 1.8 MG/DL Alkaline Phosphatase 57 U/L Aspartate Amino Transf (AST/SGOT) 77 U/L Alanine Aminotransferase (ALT/SGPT) 77 U/L Total Bilirubin 0.5 MG/DL Sodium Level 137 MEQ/L Potassium Level 4.3 MEQ/L Chloride Level 103 MEQ/L Carbon Dioxide Level 25.6 MEQ/L Anion Gap 8 MEQ/L Estimat Glomerular Filtration Rate 73 ML/MIN Total Creatine Kinase 506 U/L Creatine Kinase MB 8.4 NG/ML Creatine Kinase MB % 1.7 % Troponin I LESS THAN 0.02 NG/ML B-Type Natriuretic Peptide 3 PG/ML MDM Supervised Visit with BERYL: Yes Scripts Azithromycin (Azithromycin) 250 Mg Tab 250 MG PO DIRECTED for Infection, #6 TAB 0 Refills Take 2 tabs (500 mg) on day 1 then 1 tab daily x 4 days. Prov: Celestine Rock MD 10/14/17 Prednisone (Prednisone) 20 Mg Tab 20 MG PO BID for 5 Days, #10 TAB 0 Refills Prov: Celestine Rock MD 10/14/17 Celestine Rock MD Oct 14, 2017 21:32
--- NOTE | 2017-10-15 16:23 | EKG ---
Date Performed: 10/14/2017 Time Performed: 17:04:57 PTAGE: 66 years EKG: Sinus rhythm NONSPECIFIC T-WAVE ABNORMALITY Since previous tracing, no significant change noted BORDERLINE ECG PREVIOUS TRACING : 04/14/2017 01.51 DOCTOR: Ebony Serna Interpretating Date/Time 10/15/2017 16:22:05
== END 2017-10-14 22:04 | disposition home or self-care (01) ==
LOC: NEPC 16:25
DX: J44.1 Chronic obstructive pulmonary disease with (acute) exacerbation (principal); R05 Cough; E78.5 Hyperlipidemia, unspecified; I25.10 Atherosclerotic heart disease of native coronary artery without angina pectoris; E11.9 Type 2 diabetes mellitus without complications; R94.31 Abnormal electrocardiogram [ECG] [EKG]
CPT/HCPCS: 71010; 71275; 80053; 82550; 82552; 83735; 83880; 84484; 85025; 85610; 85730; 93005; 94664; 96374; 99285; J2930; Q9967